=== PATIENT | male | born 1980 | race American Indian/Alaskan Native ===

== ENCOUNTER 2016-07-11 14:57 | Emergency (ER) | payer MEDICAID ==
[2016-07-11 15:28] VITALS: BP 131/86
[2016-07-11] MEDS ORDERED: HYDROmorphone 1 MG/ML Syringe IM ONE (15:46)
--- NOTE | 2016-07-11 15:52 | EDM.PDOC ---
[id number] Time Seen by Provider: 07/11/16 15:47 Source: Reports: Patient History Limitations: Reports: No limitations - History of Present Illness INITIAL COMMENTS - FREE TEXT/NARRATIVE: Pt has severe pain in the lower left molar. He is using dentech to put in the cracked area. He is very uncomfortable at thois time. Timing/Duration: Reports: Hour(s):, Getting worse Severity: severe Location: Reports: mouth Quality: Reports: Sharp, Stabbing, Throbbing Associated symptoms: Reports: denies other symptoms - Related Data Allergies/ADRs: Allergies Allergy/AdvReac Type Severity Reaction Status Date / Time No Known Allergies Allergy Verified 07/11/16 15:33 Home Meds: Home Meds Ibuprofen [Advil] 2 tab PO ASDIRECTED PRN 07/11/16 [History] Past Medical History HEENT History: Reports: Impaired vision Genitourinary History: Reports: Other (see below) Other Genitourinary History: nephrectomy Musculoskeletal History: Reports: Fracture, Other (see below) Other Musculoskeletal History: Past back pain. - Infectious Disease History Infectious Disease History: Reports: Other (see below) Other Infectious Disease History: unknown Social & Family History - Tobacco Use Smoking Status *Q: Current Every Day Smoker Years of Tobacco use: 20 Packs/Tins Daily: 0.5 Used Tobacco, but Quit: No Second Hand Smoke Exposure: Yes - Caffeine Use Caffeine Use: Reports: Coffee, Soda - Recreational Drug Use Recreational Drug Use: No ED ROS ENT - Review of Systems Review Of Systems: See Below Constitutional: Reports: no symptoms HEENT: Reports: Dental pain Respiratory: Reports: No Symptoms Cardiovascular: Reports: No symptoms Endocrine: Reports: no symptoms GI/Abdominal: Reports: No symptoms : Reports: no symptoms Musculoskeletal: Reports: no symptoms Skin: Reports: no symptoms Neurological: Reports: No Symptoms ED EXAM, ENT - Physical Exam Exam: See Below Text/Narrative:: pt is having very severe pain in the left lower molar area. Exam Limited By: No limitations General Appearance: alert, severe distress Ears: normal TMs Nose: normal inspection Mouth/Throat: Dental pain Head: atraumatic Neck: normal inspection Respiratory/Chest: no respiratory distress Cardiovascular: normal peripheral pulses Course - Vital Signs Last Recorded V/S: Last Vital Signs Temp 37.2 C 07/11/16 15:35 Pulse 65 07/11/16 15:35 Resp 14 07/11/16 15:35 BP 131/86 07/11/16 15:35 Pulse Ox 99 07/11/16 15:35 - Orders/Labs/Meds Meds: Medications Discontinued Medications Generic Name Dose Route Start Last Admin Trade Name Freq PRN Reason Stop Dose Admin Hydromorphone HCl 1 mg 07/11/16 15:46 07/11/16 15:58 Dilaudid IM 07/11/16 15:47 1 mg ONETIME ONE Administration - Re-Assessments/Exams Free Text/Narrative Re-Assessment/Exam: 07/11/16 15:52 pt was very uncomfortable. He has not got severe swelling of the facial area. Departure - Departure Time of Disposition: 15:53 Disposition: Home, Self-Care 01 Condition: fair Clinical Impression: Infected tooth Instructions: Dental Abscess, [id number] Referrals: PCP,None [Primary Care Provider] - Forms: ED Department Discharge Care Plan Goals: dental appt tomorrow , needs to have an extraction. percocet 5/325 q6h prn for pain, amoxicillin 5/325 q6h prn for pain.
== END 2016-07-11 16:15 | disposition home or self-care (01) ==
LOC: JP.ED 14:57
DX: K04.7 Periapical abscess without sinus (principal); F17.210 Nicotine dependence, cigarettes, uncomplicated
CPT/HCPCS: 96372; 99283; J1170

== ENCOUNTER 2016-07-19 08:14 | Emergency (ER) | payer MEDICAID ==
--- NOTE | 2016-07-19 08:44 | EDM.PDOC ---
[id number] Time Seen by Provider: 07/19/16 08:44 Source: Reports: Patient History Limitations: Reports: No limitations - History of Present Illness INITIAL COMMENTS - FREE TEXT/NARRATIVE: 35-year-old male with ongoing dental pain. He was seen at the dental clinic last week and an extraction was attempted but was aborted. He has an appointment with maxillofacial surgery on August 17. His pain has become too intense to even work and he seems genuinely distressed. He is having trouble eating. Location: Reports: mouth Quality: Reports: Ache, Sharp Associated symptoms: Denies: shortness of breath, fever/chills - Related Data Allergies/ADRs: Allergies Allergy/AdvReac Type Severity Reaction Status Date / Time No Known Allergies Allergy Verified 07/19/16 08:36 Home Meds: Home Meds Amoxicillin [Amoxicillin] 1 tab PO TID 07/19/16 [History] Past Medical History HEENT History: Reports: Impaired vision Genitourinary History: Reports: Other (see below) Other Genitourinary History: nephrectomy Musculoskeletal History: Reports: Fracture, Other (see below) Other Musculoskeletal History: Past back pain. - Infectious Disease History Infectious Disease History: Reports: Other (see below) Other Infectious Disease History: unknown Social & Family History - Tobacco Use Smoking Status *Q: Current Every Day Smoker Years of Tobacco use: 20 Packs/Tins Daily: 0.5 Used Tobacco, but Quit: No Second Hand Smoke Exposure: Yes - Caffeine Use Caffeine Use: Reports: Coffee, Soda - Recreational Drug Use Recreational Drug Use: No ED ROS ENT - Review of Systems Review Of Systems: See Below Constitutional: Denies: fever, chills Respiratory: Denies: Shortness of Breath Cardiovascular: Denies: Chest pain ED EXAM, ENT - Physical Exam Exam: See Below Exam Limited By: No limitations General Appearance: alert, moderate distress Mouth/Throat: Other (He does have scattered dental decay but no inflammatory changes of the gingiva, no swelling or redness. His second molar on the left maxillae is exquisitely tender to touch) Course - Vital Signs Last Recorded V/S: Last Vital Signs Temp 96.8 F 07/19/16 08:36 Pulse 67 07/19/16 08:36 Resp 16 07/19/16 08:36 BP 73/32 L 07/19/16 08:36 Pulse Ox 98 07/19/16 08:36 - Orders/Labs/Meds Meds: Medications Discontinued Medications Generic Name Dose Route Start Last Admin Trade Name Pankaj PRN Reason Stop Dose Admin Bupivacaine HCl/Epinephrine Bitart 1.8 ml 07/19/16 08:47 07/19/16 08:51 Marcaine 0.5%/Epinephrine 1:200,000 INJECT 07/19/16 08:48 1.8 ml ONETIME ONE Administration - Re-Assessments/Exams Free Text/Narrative Re-Assessment/Exam: 07/19/16 09:06 Patient was given an inferior alveolar nerve block on the left side, started on prednisone 50 mg daily for 6 days and given 20 additional oxycodone. The hope is that they can get his maxillofacial procedure done sooner than August. Departure - Departure Time of Disposition: 09:21 Disposition: Home, Self-Care 01 Condition: good Clinical Impression: Dental caries, Pain, dental Referrals: PCP,None [Primary Care Provider] - Forms: ED Department Discharge Care Plan Goals: Finish antibiotic, take 5 pills of prednisone with food each morning for 6 days consecutive. Ibuprofen or naproxen may help as well and take stronger pain medications if needed. Return if worsening such as facial swelling or fever. The hope is to move up your oral surgery sooner.
[2016-07-19] MEDS ORDERED: Bupivacaine 0.5%/EPINEPHrine 1:200,000 1.8 ML Cartridge INJECT ONE (08:47)
[2016-07-19 09:24] VITALS: BP 73/32
== END 2016-07-19 09:20 | disposition home or self-care (01) ==
LOC: JP.ED 08:14
DX: K02.9 Dental caries, unspecified (principal); K08.89 Other specified disorders of teeth and supporting structures; F17.210 Nicotine dependence, cigarettes, uncomplicated; Z90.5 Acquired absence of kidney
CPT/HCPCS: 96372; 99283; 99283-25; J1170

== ENCOUNTER 2016-07-19 15:13 | Emergency (ER) | payer MEDICAID ==
[2016-07-19 15:54] VITALS: BP 123/66
[2016-07-19] MEDS ORDERED: HYDROmorphone 1 MG/ML Syringe IM ONE (16:00)
--- NOTE | 2016-07-19 16:05 | EDM.PDOC ---
[id number]: 07/19/16 15:55 Source of Information: Reports: Patient History Limitations: Reports: No limitations - History of Present Illness Onset: unknown/unsure Location: Reports: face Severity: severe Tooth/Teeth Pain Score (Numeric/FACES): 10 - Related Data Allergies Allergy/AdvReac Type Severity Reaction Status Date / Time No Known Allergies Allergy Verified 07/19/16 15:48 Home Meds: Home Meds Amoxicillin [Amoxicillin] 1 tab PO TID 07/19/16 [History] Prednisone [IJD: Prednisone] 10 mg PO ASDIRECTED 07/19/16 [History] Past Medical History HEENT History: Reports: Impaired vision Genitourinary History: Reports: Other (see below) Other Genitourinary History: nephrectomy Musculoskeletal History: Reports: Fracture, Other (see below) Other Musculoskeletal History: Past back pain. - Infectious Disease History Infectious Disease History: Reports: C-difficile, Measles Other Infectious Disease History: unknown Social & Family History - Tobacco Use Smoking Status *Q: Current Every Day Smoker Years of Tobacco use: 20 Packs/Tins Daily: 0.5 Used Tobacco, but Quit: No Second Hand Smoke Exposure: Yes - Caffeine Use Caffeine Use: Reports: Coffee, Soda - Recreational Drug Use Recreational Drug Use: No ED ROS ENT - Review of Systems Review Of Systems: See Below Constitutional: Denies: fever, chills Respiratory: Denies: Shortness of Breath Cardiovascular: Denies: Chest pain GI/Abdominal: Reports: Decreased appetite (Can't eat due to pain). Denies: Nausea, Vomiting ED EXAM, ENT - Physical Exam Exam: See Below Exam Limited By: No limitations General Appearance: alert, anxious, moderate distress Mouth/Throat: Other (Her exam is unchanged from this morning) Course - Vital Signs Last Recorded V/S: Last Vital Signs Temp 97.9 F 07/19/16 15:53 Pulse 66 07/19/16 15:53 Resp 16 07/19/16 15:53 BP 123/66 07/19/16 15:53 Pulse Ox 98 07/19/16 15:53 - Orders/Labs/Meds Meds: Medications Discontinued Medications Generic Name Dose Route Start Last Admin Trade Name Freq PRN Reason Stop Dose Admin Hydromorphone HCl 2 mg 07/19/16 16:00 07/19/16 16:23 Dilaudid IM 07/19/16 16:01 2 mg ONETIME ONE Administration - Re-Assessments/Exams Free Text/Narrative Re-Assessment/Exam: 07/19/16 16:03 Patient was given 2 mg of IM Dilaudid and asked to continue his other medications as prescribed, and reporting for surgery tomorrow as scheduled Departure - Departure Time of Disposition: 16:25 Disposition: Home, Self-Care 01 Condition: good Clinical Impression: Pain, dental - Discharge Information Instructions: Dental Abscess, [id number] Referrals: PCP,None [Primary Care Provider] - Forms: ED Department Discharge Care Plan Goals: Continue your medications as prescribed and keep your surgical appointment tomorrow in [place] as planned. ED HPI ENT - General Chief Complaint: ENT Problem Stated Complaint: toothache Time Seen by Provider: 07/19/16 15:50 Source: Reports: Patient, Family History Limitations: Reports: No limitations - History of Present Illness INITIAL COMMENTS - FREE TEXT/NARRATIVE: 35-year-old male continues to have left-sided maxillary pain. He did manage to get his appointment for oral surgery tomorrow in [place]. Local anesthetic this morning did not help him much. Severity: severe Associated symptoms: Reports: denies other symptoms - Related Data Allergies/ADRs: Allergies Allergy/AdvReac Type Severity Reaction Status Date / Time No Known Allergies Allergy Verified 07/19/16 15:48 Home Meds: Home Meds Amoxicillin [Amoxicillin] 1 tab PO TID 07/19/16 [History] Prednisone [IJD: Prednisone] 10 mg PO ASDIRECTED 07/19/16 [History] Departure - Departure Time of Disposition: 16:25 Disposition: Home, Self-Care 01 Condition: fair Clinical Impression: Pain, dental Instructions: Dental Abscess, [id number] Referrals: PCP,None [Primary Care Provider] - Forms: ED Department Discharge Care Plan Goals: Continue your medications as prescribed and keep your surgical appointment tomorrow in [place] as planned.
== END 2016-07-19 16:25 | disposition home or self-care (01) ==
LOC: JP.ED 15:13
DX: K08.89 Other specified disorders of teeth and supporting structures (principal); F17.210 Nicotine dependence, cigarettes, uncomplicated; Z90.5 Acquired absence of kidney
CPT/HCPCS: 96372; 99283; J1170